=== PATIENT | female | born 1990 | race American Indian/Alaskan Native ===

== ENCOUNTER 2016-10-21 21:57 | Inpatient (IN) | payer MEDICAID ==
[2016-10-21] MEDS ORDERED: LACTATED RINGERS 1,000 ML ONE ×2 (23:01→23:35)
[2016-10-21] MEDS ORDERED: POLYCILLIN/NS 2 GM/100 ML 2 GM/100 ML BAG IV ONE (23:02)
[2016-10-21] MEDS ORDERED: SUBLIMAZE IV ONE (23:03)
--- NOTE | 2016-10-21 23:45 | History and Physical Report ---
History of Present Illness Date of examination: 10/21/16 (pt presents in active labor) Date of admission: 10/21/16 23:23 History of present illness: EDC Confirmation: 10/30/2016 Gestational Age: 11 1/7 weeks Past History : 2 Term Births: 1 Premature Births: 0 Living Children: 1 Para: 1 Prev : 0 # 1 Delivery date: 2011 Weeks Gestation: 39 labor: no Delivery type: Infant Sex: Male Comments: no complications Past Medical History: Negative Past Medical History Past Surgical History: negative Past Medical History Anesthesia Complications: negative Anemia: negative Autoimmune Disorder: negative Bleeding Disorder: negative Blood Transfusions: negative Breast Disease: negative Diabetes: negative Heart Disease: negative Hypertension: negative Hepatitis/Liver Disease: negative Kidney Disease/UTI: negative Neurologic/Epilepsy/Migraines: negative Phlebitis/Varicosities: negative Psychiatric: negative Pulmonary Disease/Asthma: negative Thyroid Disease: negative Hospitalizations: negative Surgery (Non-manager drive): negative Abnormal PAP: negative HAMIDA Exposure: negative Infertility: negative Uterine Anomaly: negative Uterine Surgery (not C/S): negative Other Gynecologic Problems: negative Social Hx: Patient is single no ETOH or drugs Smoking History: Patient has never smoked. Infection History Hx of STD: chlamydia HIV Risk Eval: no Hepatitis B Risk Eval: low risk Personal hx. of genital herpes: no Partner hx. of genital herpes: no Rash, Viral, or Febrile illness since last LMP? no Varicella/Chicken Pox Status: Previous Disease TB Risk: no Genetic History Congenital Heart Defect: Mom: no Dad: no Zeinab Disease: Mom: no Dad: no Thalassemia Mom: no Dad: no Neural Tube Defect Mom: no Dad: no Down's Syndrome Mom: no Dad: no Jeffrey-Sachs Mom: no Dad: no Sickle Cell Disease/Trait Mom: no Dad: no Hemophilia Mom: no Dad: no Muscular Dystrophy Mom: no Dad: no Cystic Fibrosis Mom: no Dad: no [place] Chorea Mom: no Dad: no Mental Retardation Mom: no Dad: no Fragile X Mom: no Dad: no Other Genetic/Chromosomal Disorder Mom: no Dad: no Child w/other defect Mom: no Dad: no Enviromental Exposures Xray Exposure: yes Medication, drug, or alcohol use since LMP: no Chemical/Other Exposure: no Exposure to Cat Liter: no Hx of Parvovirus (Fifth Disease): no 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 Complains of nausea. Denies vomiting, headache, swelling of legs, abdominal pain, vaginal discharge, vaginal bleeding and contractions. fatigue Denies vaginal discharge, incontinence, dysuria, hematuria, urinary frequency, amenorrhea, menorrhagia, abnormal vaginal bleeding, pelvic pain, genital sores, decreased libido, painful periods, painful sex, urinary urgency, hot flashes, vaginal dryness, vaginal itching and vaginal odor. CV Denies chest pains, palpitations, syncope, dyspnea on exertion, orthopnea, PND and peripheral edema. Resp Denies cough, dyspnea at rest, excessive sputum, hemoptysis, wheezing and pleurisy. GI Denies nausea, vomiting, diarrhea, constipation, change in bowel habits, abdominal pain, melena, hematochezia, jaundice, gas/bloating, indigestion/ heartburn, dysphagia and odynophagia. Endo Denies cold intolerance, heat intolerance, polydipsia, polyphagia, polyuria and unusual weight change. Breast Denies left breast lump, right breast lump, nipple discharge, bloody discharge from nipple, breast pain, abnormal mammogram and breast enlargement. MS Denies back pain, joint pain, joint swelling, muscle cramps, muscle weakness, stiffness, arthritis, sciatica, restless legs, leg pain at night and leg pain with exertion. Derm Denies rash, itching, dryness and suspicious lesions. Neuro Denies paralysis, paresthesias, headache, seizures, tremors, vertigo, transient blindness, frequent falls, frequent headaches and difficulty walking. Psych Denies depression, anxiety, irritability and mood swings. Eyes Denies blurring, diplopia, irritation, discharge, vision loss, eye pain and photophobia. ENT Denies earache, ear discharge, tinnitus, decreased hearing, nasal congestion, nosebleeds, sore throat and hoarseness. Allergy Denies urticaria, allergic rash, hay fever and recurrent infections. Heme Denies abnormal bruising, bleeding and enlarged lymph nodes. PHYSICAL EXAM HEENT: PERRLA, normal conjunctiva, external nose and nasal mucosa normal, oropharynx clear Neck/Thyroid: supple, thyroid normal Skin no significant abnormal lesions or rashes Chest: respiratory effort normal, clear to auscultation Breasts: normal without skin changes or masses CV: regular, normal S1-S2, no murmur, no rub, no gallop Abdomen: normal bowel sounds, soft, nontender, no HSM Musculoskeletal: grossly normal ROM in joints, no joint tenderness or muscle weakness Neuro: grossly normal DTRs, sensation, strength, cranial nerves Extremities: no clubbing, cyanosis, or edema Past History - Obstetrical History Expected Date of Delivery: 10/30/16 Actual Gestation: 38 Week(s) 5 Day(s) : 2 Para: 1 Hx # Term Pregnancies: 1 Number of Living Children: 1 Medications and Allergies Allergies Allergy/AdvReac Type Severity Reaction Status Date / Time No Known Allergies Allergy Verified 10/21/16 22:54 Active Meds: Active Medications Ampicillin Sodium (Polycillin/Ns 2 Gm/100 Ml) 2 gm in 100 mls @ 100 mls/hr IV ONCE ONE Stop: 10/22/16 00:01 - Vital Signs Vital signs: Vital Signs Pulse BP 67 117/70 10/21/16 22:14 10/21/16 22:14 Temp Pulse Resp BP Pulse Ox 99.0 F 82 18 117/70 99 10/21/16 22:38 10/21/16 23:30 10/21/16 22:38 10/21/16 22:38 10/21/16 23:30 - Physical Exam Breasts: Positive: deferred Cardiovascular: Regular rate, Normal S1, Normal S2 Lungs: Positive: Normal air movement Abdomen: Positive: normal appearance, soft, normal bowel sounds. Negative: distention, tenderness Genitourinary (Female): Positive: normal perenium Vulva: both: normal Vagina: Positive: normal moisture. Negative: discharge Cervix: Negative: lesion, discharge Uterus: Positive: normal size, normal contour Adnexa: both: normal Anus/Rectum: Positive: normal perianal skin, heme negative. Negative: rectal mass, hemorrhoids Extremities: Positive: normal Deep Tendon Reflex Grade: Normal +2 - Obstetrical FHR: category 1 Uterine Contraction Monitor Mode: External Cervical Dilatation: 5 (BBOW) Cervical Effacement Percentage: 90 station: -1 Uterine Contraction Pattern: Regular Uterine Tone Measurement Phase: Resting Uterine Contraction Intensity: Moderate Results All other labs normal. Laboratory Data-Patient Name: PETER GUZMAN Test Date Result Blood Type 05/09/2016 O Rh 05/09/2016 Negative Antibody Screen Rubella 05/09/2016 IMMUNE Serology (RPR) 09/26/2016 NR HBsAg 05/09/2016 Negative Hemoglobin 07/18/2016 11.9 Hematocrit 07/18/2016 38.3 Platelets 05/09/2016 173 [id number] Chlamydia DNA 09/26/2016 Negative GC DNA/Culture 09/26/2016 Urine Culture 05/09/2016 Final report Group B Strep cult positive PAP 11/19/2015 Normal, Satisfactory HIV 09/26/2016 AFP/Quad Screen 05/09/2016 Glucola Test 3hr GTT (Fasting) 1 hr 2 hr 3 hr [facility]-Patient Name:PETER GUZMAN Test Date Result Varicella Ab Sickle Cell 05/09/2016 Negative PPD Fibronectin Cystic Fibrosis Parvovirus TSH Free T4 Hepatitis C ALT AST Uric Acid Creatinine 24 hr Urine Protein DAVIN Assessment and Plan 26yo @ 38 weeks in active labor SVE 5,90,-1 with bloody show BBOW GBS+ Orders in EMR.
[2016-10-21 23:52] LABS: Hemoglobin 12.6 gm/dl (10.1-14.3); Mean Corpuscular HGB Conc 32 % (30-34); Mean Corpuscular Hemoglobin 29 pg (28-32); Mean Corpuscular Volume 90 fl (79-97); Platelet Count 119 K/mm3 (140-440); Red Blood Count 4.34 M/mm3 (3.65-5.03); Red Cell Distribution Width 14.3 % (13.2-15.2); White Blood Count 10.4 K/mm3 (4.5-11.0)
[2016-10-22] MEDS ORDERED: XYLOCAINE 2% INFILTRATI ONE (00:02)
[2016-10-22] MEDS ORDERED: BRETHINE SUB-Q PRN (00:02)
[2016-10-22] MEDS ORDERED: ZOFRAN IV PRN (00:02)
[2016-10-22] MEDS ORDERED: MINERAL OIL PO PRN (00:02)
[2016-10-22] MEDS ORDERED: ePHEDrine SULFATE IV PRN (00:02)
[2016-10-22] MEDS ORDERED: PITOCin/NS 20 UNIT/1000ML DRIP 20,000 MILLIUNITS/1,000 ML BAG IV ONE (00:31)
[2016-10-22] MEDS ORDERED: METHERGINE IM ONE ×2 (00:50→00:59)
[2016-10-22] MEDS ORDERED: PITOCin 20 UNIT in NACL 0.9% 1000 ML 998 ML IV SCH (01:00)
[2016-10-22] MEDS ORDERED: PITOCin 30 UNIT in NACL 0.9% 500 ML 497 ML IV SCH (01:00)
[2016-10-22] MEDS ORDERED: LACTATED RINGERS 1,000 ML IV SCH ×2 (01:00)
[2016-10-22] MEDS ORDERED: PERCOCET 5/325 PO PRN (01:02)
[2016-10-22] MEDS ORDERED: DULCOLAX PR PRN (01:02)
[2016-10-22] MEDS ORDERED: PHENERGAN PO PRN (01:02)
[2016-10-22] MEDS ORDERED: LANSINOH TP PRN (01:02)
[2016-10-22] MEDS ORDERED: DERMOPLAST TP PRN (01:02)
[2016-10-22] MEDS ORDERED: BENADRYL PO PRN (01:02)
[2016-10-22] MEDS ORDERED: TYLENOL PO PRN (01:02)
[2016-10-22] MEDS ORDERED: TUCKS PAD TP PRN (01:02)
[2016-10-22] MEDS ORDERED: MILK OF MAGNESIA PO PRN (01:02)
--- NOTE | 2016-10-22 01:25 | Procedure Note ---
OB Delivery Note - Delivery Date of Delivery: 10/22/16 Magnet Maker: TAMMY JUSTICE Estimated blood loss: 300cc - Vaginal Delivery presentation: vertex Delivery position: OA Intrapartum events: precipitous labor- <3hr Delivery induction: none Delivery monitor: external FHT, external uterine Route of delivery: Delivery placenta: spontaneous Delivery cord: nuchal cord, 3 umbilical vessels Delivery laceration: 2nd degree Delivery repair: vicryl Anesthesia: local Delivery comments: Pt sitting for epidural C/O urge to push live born male over intact perineum CAN X 1 reduced Baby to mom's abdomen skin to skin Cord blood obt Placenta and membrane del complete and intact, 3 vessel cord. 2nd degree laceration noted Repaired with 2-0 vicryl over Lidocaine. Uterus boggy methergin IM given Resolved with massage. Pit IVFs Mom and baby remain LDR stable - Infant A at 1 minute: 8 at 5 minutes: 9 Gender: Male (wgt 6-11)
[2016-10-22] MEDS: MOTRIN PO SCH ×4 (01:58→21:05)
[2016-10-22] MEDS ORDERED: SODIUM CHLORIDE FLUSH SYRINGE 10 ML IV PRN (02:00)
[2016-10-22] MEDS ORDERED: POLYCILLIN/NS 1 GM/50 ML 1 GM/50 ML BAG IV SCH (04:00)
[2016-10-22] MEDS: COLACE PO SCH ×2 (09:50→21:27)
[2016-10-22] MEDS: NORCO 5/325 PO PRN ×3 (09:50→21:02)
[2016-10-22] MEDS: PRENATAL VITAMIN PO SCH (09:50)
[2016-10-22 13:37] LABS: Hematocrit 36.1 % (30.3-42.9); Hemoglobin 11.7 gm/dl (10.1-14.3)
[2016-10-23] MEDS ORDERED: M-M-R II VACCINE SUB-Q ONE (01:02)
[2016-10-23] MEDS ORDERED: BOOSTRIX IM ONE (06:00)
[2016-10-23] MEDS: MOTRIN PO SCH ×5 (06:26→23:39)
--- NOTE | 2016-10-23 09:12 | Discharge Summary ---
Providers - Providers Date of Admission: 10/21/16 23:23 Date of discharge: 10/23/16 (pt agrees with d/c ) Attending physician: EMA CHURCH Primary care physician: EMA CHURCH Hospitalization Reason for admission: active labor Delivery: Episiotomy: none Laceration: none Incision: normal Other procedures: none complications: none Discharge diagnosis: IUP at term delivered baby: male Hospital course: uncomplicated vaginal delivery Pt w/o complaint VSS FF below umb Lochia small Perineum intact H&H , stable Pt doing well s/p vag delivery P: d/c today with instructions RTO 4 weeks Son's circ in 1 week. RX provided. Condition at discharge: Good Disposition: DISCHARGED TO HOME OR SELFCARE - Discharge Diagnoses (1) Spontaneous vaginal delivery Status: Acute Comment: RTO 4 weeks for PP care Plan - Discharge Medications Prescriptions: Ibuprofen [Motrin 800 MG tab] 800 mg PO TID PRN #30 tablet PRN Reason: Pain Lidocain2.5%/Prilocai2.5% [Emla] 5 gm TP PRN #1 tube - Provider Discharge Summary Activity: routine, no sex for 6 weeks, no heavy lifting 4 weeks, no strenuous exercise Diet: routine Instructions: routine Additional instructions: [] Smoking cessation referral if applicable(refer to patient education folder for contact #) [] Refer to [facility] Booklet Call your doctor immediately for: * Fever > 100.5 * Heavy vaginal bleeding ( >1 pad per hour) * Severe persistent headache * Shortness of breath * Reddened, hot, painful area to leg or breast * Drainage or odor from incision. * Keep incision clean and dry at all times and follow doctor's instructions regarding bathing/showering - Follow up plan Follow up: EMA CHURCH MD [Primary Care Provider] - 7 Days (Congratulations! Please call [phone] to schedule your appointment in 4 weeks. Your son's circumcision in 1 week. Bring the EMLA cream with you to his appointment. Take medications as prescribed. Call with concerns.)
[2016-10-23] MEDS: COLACE PO SCH ×2 (11:45→22:18)
[2016-10-23] MEDS: PRENATAL VITAMIN PO SCH (11:45)
[2016-10-23] MEDS: NORCO 5/325 PO PRN (20:27)
[2016-10-24] MEDS: MOTRIN PO SCH (05:22)
[2016-10-24] MEDS: NORCO 5/325 PO PRN (06:27)
[2016-10-24 09:08] VITALS: BP 120/50
== END 2016-10-24 09:20 | disposition home or self-care (01) | DRG 775 ==
LOC: TRG 21:57 → LD 23:23 → OB 10-22 02:22
PROVIDERS: ADMIT Obstetrics & Gynecology; ATTEND Obstetrics & Gynecology
PROC: 10E0XZZ Delivery of Products of Conception, External Approach (ICD-10-PCS; principal; 2016-10-22)
PROC: 0KQM0ZZ Repair Perineum Muscle, Open Approach (ICD-10-PCS; 2016-10-22)
PROC: 3E0334Z Introduction of Serum, Toxoid and Vaccine into Peripheral Vein, Percutaneous Approach (ICD-10-PCS; 2016-10-22)
DX: O62.3 Precipitate labor (principal); O69.81X0 Labor and delivery complicated by cord around neck, without compression, not applicable or unspecified; O99.824 Streptococcus B carrier state complicating childbirth; O70.1 Second degree perineal laceration during delivery; Z3A.38 38 weeks gestation of pregnancy; Z37.0 Single live birth
CPT/HCPCS: 36415; 85014; 85018; 85027; 85460; 85461; 86592; 86850; 86900; 86901; 90715; 99211; G0463; J0290; J2210; J2590; J2790; J3010; J7120